=== PATIENT | male | born 1960 | race Caucasian/White ===

== ENCOUNTER → 2017-08-05 | Day surgery (SDC) | payer OTHER ==
[~2017-08-05] VITALS: Ht 165.1 cm; Wt 94.3 kg
[~2017-08-05] MED LIST: ACETAMINOPHEN500 M4 PO; ALL DAY ALLERGY10 MG PO; AMOXICILLIN875 M1 PO; HYDROCHLOROTHIA25 M1 PO; IBUPROFEN200 M3 PO; LEVOTHYROXINE100 MC1 PO; LOSARTAN POTAS100 M1 PO; MELOXICAM15 M1 PO; MULTIVITAMINS1 EAC9 PO; PREDNISONE20 M1 PO; PROAIR HFA8.5 GM INH; SKELAXIN800 M1 PO; SYNTHROID200 MCG PO; TESSALON PERLE100 M1 PO
--- NOTE | 2017-08-05 13:15 | Operative Report ---
Operative/Inv Procedure Report Surgery Date: 08/05/17 Name of Procedure: Achilles tendon repair left ankle Pre-Operative Diagnosis: Complete tear left Achilles tendon Post-Operative Diagnosis: Achilles tendon rupture left ankle Estimated Blood Loss: scant Surgeon/Direct Response Consultant: Dwain Watson MD Anesthesia: general endotracheal tube Tourniquet: A tourniquet was used and inflated above the left thigh. Tourniquet time was 69 minutes tourniquet pressure was 300 mm Complications: None Condition: Stable returned to PACU Operative Indication: This is a 57-year-old gentleman who works for the [employer]. 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 He felt a pop in his left calf and an inability to plantarflex his left ankle. Examination revealed a positive Harris sign and a large defect at the distal portion of the tendon. Treatment options were explained to him and he chose to have the tendon repaired operatively. Operative/Procedure Note Note: Patient received a popliteal block in the preop area. He also received preoperative antibiotics. He was then taken to the operative suite and a general anesthetic was administered. He was then turned gently into a prone position and all bony prominences were well-padded. The left ankle was then prepped and draped in usual sterile fashion. A tourniquet was inflated over the knee after the leg had been exsanguinated with a sterile Esmarch. Tourniquet pressure 300 mmHg. A medial incision was then made directly over the distal portion of the Achilles tendon and taken down through skin and subcutaneous tissue.. Gentle dissection continued to expose the tendon sheath. Patient had a palpable defect of 4 cm. Tendon sheath was opened and the proximal portion of the tendon was mobilized. #5 nonabsorbable sutures were then placed through the proximal portion of the tendon using a Krakw suture technique. 2 #5 sutures were placed in the proximal portion of the tendon and 2 #5 sutures were placed through the distal portion of the tendon in a similar fashion. The ankle was then plantarflexed and the sutures and each portion of the tendon were tied together firmly. This afforded a good approximation of the tendon. The incision was then copiously irrigated. The skin was closed with 2-0 Prolene subcuticular sutures and Steri-Strips. The posterior ankle and heel were then copiously padded and the patient is placed in a short leg cast in plantarflexion. Tourniquet time was 69 minutes. He was returned to the recovery room in excellent condition.
== END ==
LOC: STS 01:10
DX: S86.012A Strain of left Achilles tendon, initial encounter (principal); W13.8XXA Fall from, out of or through other building or structure, initial encounter; I10 Essential (primary) hypertension; M19.90 Unspecified osteoarthritis, unspecified site; Z85.850 Personal history of malignant neoplasm of thyroid
CPT/HCPCS: J0131; J0690; J1100; J1885; J2250; J2405